=== PATIENT | male | born 1950 | race Caucasian/White ===

== ENCOUNTER 2019-04-30 14:00 | Outpatient (CLI) | payer MEDICARE ==
--- NOTE | 2019-04-30 15:30 | ULT ---
CAROTID ARTERIAL DOPPLER ULTRASOUND: 04/30/2019 COMPARISON: None. HISTORY: Essential hypertension. Hyperlipidemia. TECHNIQUE: Multiplanar chahal-scale sonographic imaging of the arterial structures of the neck obtained with color -flow and spectral analysis. FINDINGS: Antegrade blood flow and normal arterial wave-forms are documented within the carotid and vertebral s ystem bilaterally. The peak systolic velocity within the common carotid artery is 105 cm/s on the right and 83 cm/s on t he left. The peak systolic velocity within the internal carotid artery is 52 cm/s on the right and 61 cm/s on the left. The peak systolic velocity within the external carotid artery is 98 cm/s on the right and 84 cm/s on the left. The ICA/CCA ratio is 0.5 on the right and 0.7 on the left. IMPRESSION: No hemodynamically significant stenosis on the basis of sonographic velocity criteria. Transcribed Date/Time: 04/30/2019 4:11 PM
--- NOTE | 2019-05-01 08:54 | CT ---
CT CORONARY CALCIUM SCORING: DATE: 04/30/2019. PROVIDED CLINICAL HISTORY: Screening. FINDINGS: Agatston calcium score for the following vessels: Left main: 3 Right coronary artery: 295 Left anterior descendin Circumflex: 107 Total: 836 Total Agatston calcium score of 836, implying extensive atherosclerotic plaque. There is high likeli callaway of at least one significant coronary narrowing. The unenhanced partially visualized mediastinal contents, osseous structures, and lung parenchyma ana laura ear otherwise unremarkable. IMPRESSION: Extensive atherosclerotic plaque, with high likelihood of at least one significant coronary narrowing . POS: OFF
== END 2019-04-30 14:01 | disposition home or self-care (01) ==
LOC: BICCT 14:00
PROVIDERS: ATTEND Internal Medicine
DX: I65.21 Occlusion and stenosis of right carotid artery (principal); I10 Essential (primary) hypertension; E78.00 Pure hypercholesterolemia, unspecified; I25.10 Atherosclerotic heart disease of native coronary artery without angina pectoris
CPT/HCPCS: 75571; 93880